=== PATIENT | female | born 1965 | race Caucasian/White ===

== ENCOUNTER 2024-08-16 11:26 | Emergency (ER) | payer OTHER, SELFPAY ==
[2024-08-16 11:27] VITALS: BP 178/93; PULSE 94; RESP 16; TEMP 37; O2SAT 98; BMI 53.4
[2024-08-16 11:34] VITALS: O2SAT 97
--- NOTE | 2024-08-16 11:37 | ED.VIS.DYS ---
HPI History of Present Illness Chief Complaint: Shortness of Breath Detail of Chief Complaint: Shortness of breath Informant: patient Narrative Narrative: Patient presents to the emergency department complaining short of breath that started 3 days ago. She complains of slight cough that is nonproductive. She complains of bodyaches. She has had fever up to 101 at home. She was seen in urgent care today and referred to the ER. 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 She is currently on Eliquis because of recent diagnosis of DVT in her right leg. She denies any chest pain. [facility] Medical History (Updated 08/16/24 @ 12:[address] Chad Gaines, DO) High cholesterol Home Medications ?Medication ?Instructions ?Recorded ?Last Taken ?Type bupropion HCl 300 mg 24 hr tablet, 300 mg PO DAILY 10/20/15 Unknown History extended release fluoxetine 10 mg capsule 10 mg PO DAILY 10/20/15 Unknown History fluoxetine 20 mg capsule 20 mg PO DAILY 10/20/15 Unknown History hydrocodone-acetaminophen 5-325mg 1 - 2 tab PO Q4H PRN PRN Pain ##20 10/20/15 Unknown Rx 5mg-325mg lansoprazole 30 mg capsule,delayed 30 mg PO DAILY 10/20/15 Unknown History release (Prevacid) lutein 20 mg tablet 20 mg PO DAILY 10/20/15 Unknown History simvastatin 20 mg tablet 20 mg PO QHS 10/20/15 Unknown History apixaban 5 mg tablet (Eliquis) 5 mg PO BID 08/16/24 Unknown History doxycycline monohydrate 100 mg 100 mg PO BID #20 CAPSULES 08/16/24 Unknown Rx capsule hydrochlorothiazide 25 mg tablet 25 mg PO DAILY 08/16/24 Unknown History lisinopril 40 mg tablet 40 mg PO DAILY 08/16/24 Unknown History potassium chloride 10 mEq 10 meq PO DAILY 08/16/24 Unknown History tablet,extended release(part/cryst) (Klor-Con M) prednisone 20 mg tablet 20 mg PO BID #10 tabs 08/16/24 Unknown Rx rosuvastatin 10 mg tablet 10 mg PO DAILY 08/16/24 Unknown History Allergy/AdvReac Type Severity Reaction Status Date / Time apple Allergy Shortness Verified 08/16/24 11:29 of breath erythromycin base Allergy Diarrhea Verified 08/16/24 11:29 macadamia nut oil Allergy Anaphylaxis Verified 08/16/24 11:29 oats Allergy Shortness Verified 08/16/24 11:29 of breath Penicillins (PCN) Allergy Rash Verified 08/16/24 11:29 codeine AdvReac ABD PAIN Verified 08/16/24 11:29 morphine AdvReac HALLUCINATIONS, Verified 08/16/24 11:29 ABD PAIN Social History Smoking Status: Never smoker ROS ROS ED Review of Systems ROS Unobtainable: other Constitutional Constitutional ED: Reports fever(s) and lethargy; Denies chills, sweats or weight loss Eyes Eyes: Denies blurry vision, change in vision or diplopia ENT ENT ED: Denies rhinorrhea or sore throat Cardiovascular Cardiovascular: Denies chest pain, orthopnea or racing heartbeat Respiratory/Chest Respiratory/Chest: Reports cough, dyspnea and dyspnea on exertion; Denies orthopnea or sputum Gastrointestinal Gastrointestinal: Denies abdominal pain, diarrhea, nausea or vomiting Genitourinary Genitourinary ED: Denies dysuria, hematuria or urinary frequency Musculoskeletal Musculoskeletal: Reports myalgias; Denies arthralgias, back pain or neck pain Integumentary Denies abscess, Abrasions or rash Neurologic Neurologic: Denies headache(s) or weakness Psychiatric Psychiatric: Denies anxiety, depression or suicidal thoughts Endocrine Endocrinology: Denies polydipsia, polyphagia or polyuria Hematologic/Lymphatic Hematologic/Lymphatic: Denies easy bleeding, easy bruising or lymphadenopathy Allergic/Immunologic Allergic/Immunologic ED: Denies mouth swelling, tongue swelling or urticaria EXAM Physical Exam Const Vital Signs: 08/16/24 11:27 08/16/24 11:34 08/16/24 11:42 Temperature 98.6 F Temperature Source Oral Pulse Rate 94 90 Respiratory Rate 16 18 Respiratory Effort Short of Breath Labored Respiratory Pattern Normal Blood Pressure 178/93 H Blood Pressure Mean 121 Pulse Ox 98 Oxygen Delivery Method Room Air Room Air Positive well nourished and well developed General Appearance ED: well developed and NAD HEENT Reports TM's clear and moist mucous membranes normocephalic and atraumatic; Negative for trauma or tenderness Tympanic Membrane ED: Yes TM's clear Eyes PERRL and EOMs intact bilaterally General Eye ED: Negative for pale conjunctiva or scleral icterus Neck no lymphadenopathy, supple and no JVD General: Negative for tenderness Chest Wall inspection of chest normal and palpation of chest normal Chest: Negative for tenderness Resp clear to auscultation bilaterally Resp Narrative: Mild tachypnea. No accessory muscle use or retractions. Effort and Inspection: Negative for respiratory distress or pain with movement Auscultation: wheezes; Negative for rhonchi or diminished lung sounds Cardio regular rate, regular rhythm, S1 normal heart sound, S2 normal heart sound and no murmurs Peripheral Pulses: pulses 2+ throughout GI normal to inspection, nondistended, normoactive bowel sounds, soft to palpation, non-tender, non-distended and no masses Back/Spine no CVA tenderness and no thoracic nor lumbar tenderness Extremity normal to inspection General Extremety ED: Negative for edema General Extremity: Negative for edema Neuro oriented x3, CN's II-XII intact bilaterally, no sensory deficits noted and gait normal Sensorium / Orientation: awake, alert, oriented to person, oriented to place and oriented to time Motor Exam: strength 5/5 throughout and strength abnormal Psych mental status grossly normal Skin no rashes or lesions noted and no wounds MDM MDM MDM Narrative Medical decision making narrative: Patient with fever and cough as well as body aches that started 3 days ago. She is a school nurse. Clinically looks well on exam. Chest x-ray obtained showed mild bibasilar atelectasis or inflammation. COVID flu and RSV testing was negative. While in department she did receive a DuoNeb aerosol and was started on prednisone. Her wheezing improved after treatment. At this point I suspect an asthmatic bronchitis. Will start her on doxycycline and prednisone as well as dispense an albuterol MDI. Advised to follow-up with primary care physician 5 to 7 days. She is to return if increasing shortness of breath or condition should worsen anyway Radiography Diagnostic Testing: Clinical Impression(s) from Imaging Studies Chest X-Ray 08/16/24 11:55 IMPRESSION: Mild bibasilar atelectasis or inflammation. Electronically Signed: Marylou Grossman MD at 12:27 EST , 1 view chest x-ray obtained interpreted by myself as no evidence of infiltrate or pneumothorax or acute disease process. Radiology felt there was mild bibasilar atelectasis or inflammation. Discharge Plan Triage Chief Complaint: Shortness of Breath ED Provider: Chad Gaines Dx/Rx/DC Orders Clinical Impression: Asthmatic bronchitis Instructions: ED Bronchitis with Wheezing (Adult) Prescriptions: New doxycycline monohydrate 100 mg capsule 100 mg PO BID Qty: 20 0RF prednisone 20 mg tablet 20 mg PO BID Qty: 10 0RF No Action simvastatin 20 MG tablet 20 mg PO QHS lansoprazole [Prevacid] 30 MG capsule 30 mg PO DAILY fluoxetine 10 MG capsule 10 mg PO DAILY fluoxetine 20 MG capsule 20 mg PO DAILY bupropion HCl 300 MG tablet extended release 24 hr 300 mg PO DAILY lutein 20 MG tablet 20 mg PO DAILY hydrocodone-acetaminophen 1 TABLET tablet 1 - 2 tab PO Q4H PRN PRN (Reason: Pain) Qty: 20 0RF hydrochlorothiazide 25 mg tablet 25 mg PO DAILY lisinopril 40 mg tablet 40 mg PO DAILY Eliquis 5 mg tablet 5 mg PO BID rosuvastatin 10 mg tablet 10 mg PO DAILY potassium chloride [Klor-Con M10] 10 mEq tablet,ER particles/crystals 10 meq PO DAILY Primary Care Provider: BAYLEE SMITH Referrals: [facility] Doctor,Out of [Non-Staff] - Print Language: Citizen Of [place] Disposition Disposition: Home, Self Care
[2024-08-16] MEDS: Ipratropium/Albuterol Sulfate 3 ML AMPUL.NEB INHALATION (11:41)
[2024-08-16 11:42] VITALS: PULSE 90; RESP 18
[2024-08-16] MEDS: predniSONE 20 MG Tablet 40 MG PO (11:43)
--- NOTE | 2024-08-16 11:55 | RAD_ITS ---
HISTORY: cough, fever. TECHNIQUE: XR Chest 1 View. COMPARISON: 04/09/2011. FINDINGS: CARDIOMEDIASTINAL BORDERS: Cardiac silhouette within normal limits in size. Mediastinal contour unremarkable. LUNGS: Mild linear bibasilar opacities. PLEURA: No pleural effusion or pneumothorax seen. OSSEOUS STRUCTURES: Mild degenerative change. RAD/Chest 1 View (Portable) IMPRESSION: Mild bibasilar atelectasis or inflammation. Electronically Signed: Marylou Grossman MD at 12:27 EST ,
[2024-08-16] MEDS: Doxycycline 100 MG CAPSULE PO (12:42)
[2024-08-16 12:47] VITALS: BP 151/7; PULSE 89; RESP 18; TEMP 36.1; O2SAT 98
[2024-08-16] MEDS: Albuterol Sulfate 8 gm Inhaler (60 puffs) 2 PUFF INHALATION (12:50)
== END 2024-08-16 12:52 | disposition home or self-care (01) ==
PROVIDERS: Emergency Provider Emergency Medicine; PCP Family Medicine; Visit Provider Emergency Medicine
DX: J45.909 Unspecified asthma, uncomplicated (principal)
CPT/HCPCS: 71045; 87631; 94640; 99282